=== PATIENT | female | born 2005 | race Caucasian/White ===

== ENCOUNTER 2023-06-16 01:38 | Emergency (ER) | payer SELFPAY ==
[~2023-06-16] VITALS: Ht 167.6 cm; Wt 54.4 kg
[2023-06-16 01:51] VITALS: BP 112/87; PULSE 96; RESP 14; TEMP 96.4; O2SAT 100
[2023-06-16 02:00] VITALS: O2SAT 100
[2023-06-16] MEDS ORDERED: ONDANSETRON 4 MG/2 ML VIAL IVP ONE (02:05)
[2023-06-16] MEDS: NACL 0.9% 1,000 ML IV ONE (02:17)
[2023-06-16 03:02] LABS: BASOPHILS % (AUTO) 0.1 % (0.0-2.0); HEMATOCRIT 41.8 % (36-48); HEMOGLOBIN 14.2 g/dL (12.0-16.0); LYMPHOCYTES # (AUTO) 2.6 K/uL (2.5-16.5); LYMPHOCYTES % (AUTO) 38.6 % (20.5-51.1); MEAN CORPUSCULAR HEMOGLOBIN 30 pg (27-31); MEAN CORPUSCULAR HGB CONC 34 g/dL (33-37); MEAN CORPUSCULAR VOLUME 88.6 fL (80-94); MONOCYTES # (AUTO) 0.3 K/uL (0.8-1.0); NEUTROPHILS # (AUTO) 3.9 K/uL (1.8-7.7); NEUTROPHILS % (AUTO) 57.3 % (42.2-75.2); PLATELET COUNT (AUTO) 222 K/uL (140-450); RED BLOOD CELL COUNT(AUTO) 4.72 MIL/uL (4.20-5.40); RED CELL DISTRIBUTION WIDTH 13.4 % (11.6-13.7); WHITE BLOOD COUNT (AUTO) 6.8 K/uL (4.5-11.0)
[2023-06-16 03:10] LABS: ANION GAP 18.9 (8-16); CALCIUM 8.2 mg/dL (8.5-10.1); CARBON DIOXIDE 24.6 mmol/L (21-32); CREATININE 0.7 mg/dL (0.6-1.3); POTASSIUM 3.5 mmol/L (3.5-5.1)
[2023-06-16 03:48] VITALS: BP 110/68; PULSE 82; RESP 16; O2SAT 98
== END 2023-06-16 03:00 | disposition home or self-care (01) ==
LOC: MED 01:38
DX: F10.129 Alcohol abuse with intoxication, unspecified (principal); R11.2 Nausea with vomiting, unspecified; F17.200 Nicotine dependence, unspecified, uncomplicated; Y90.6 Blood alcohol level of 120-199 mg/100 ml
CPT/HCPCS: 36415; 80048; 85025; 96360; 99283; G0482; J7030